=== PATIENT | male | born 1945 | race African-American/Black ===

== ENCOUNTER 2018-04-10 19:16 | Emergency (ER) | payer MEDICARE, BC ==
[2018-04-10 19:36] VITALS: RESP 18
--- NOTE | 2018-04-10 20:41 | ED ---
Back Pain HPI - General Chief Complaint: Back Pain/Injury Stated Complaint: Neck pain Time Seen by Provider: 04/10/18 20:27 Source: patient, RN notes reviewed Limitations: no limitations - History of Present Illness Initial Comments: This is a 72-year-old male who presents to the emergency department with chief complaint of acute neck pain. Patient states that yesterday he had an echocardiogram. He states that while he was laying there he started to feel a kink in the left side of his neck. He states that he had to take a break from the echo because his neck was hurting him so bad. Patient states that since that time he has had difficulty rotating his neck to the left. He states that he's had difficulty sleeping due to pain. He states that he has been taking Tylenol and did take a dose of his 's baclofen but that this did not help. He denies any numbness or tingling. Denies weakness. Denies fevers or chills, chest pain or shortness of breath, abdominal pain, nausea or vomiting, dizziness or headache. - Related Data Home Medications Medication Instructions Recorded Confirmed Aspirin 81 mg PO DAILY 03/19/14 03/19/14 Gabapentin [Neurontin] 300 mg PO TID 03/19/14 03/19/14 Carvedilol [Coreg] 6.25 mg PO BID 04/10/18 04/10/18 Cholecalciferol (Vitamin D3) 2,000 unit PO DAILY 04/10/18 04/10/18 [Vitamin D3] Loratadine [Claritin] 10 mg PO DAILY 04/10/18 04/10/18 Losartan Potassium [Cozaar] 100 mg PO DAILY 04/10/18 04/10/18 metFORMIN HCL 1,000 mg PO HS 04/10/18 04/10/18 Previous Rx's Medication Instructions Recorded Methocarbamol [Robaxin] 1,000 mg PO QID PRN #12 tab 04/10/18 Allergies Allergy/AdvReac Type Severity Reaction Status Date / Time No Known Allergies Allergy Verified 04/10/18 20:33 Review of Systems ROS Statement: Those systems with pertinent positive or pertinent negative responses have been documented in the HPI. ROS Other: All systems not noted in ROS Statement are negative. Past Medical History Past Medical History: Diabetes Mellitus, Hypertension Additional Past Medical History / Comment(s): neuropathy History of Any Multi-Drug Resistant Organisms: None Reported Past Surgical History: Orthopedic Surgery Additional Past Surgical History / Comment(s): knee bilateral Past Psychological History: No Psychological Hx Reported Smoking Status: Former smoker Past Alcohol Use History: None Reported Past Drug Use History: None Reported General Exam - General Exam Comments Initial Comments: General: Awake and alert, well-developed; in no apparent distress. is at bedside. HEENT: Head atraumatic, normocephalic. Pupils are equal, round and reactive to light. Extraocular movements intact. Oropharynx moist without erythema or exudate. Neck: Supple. Limited range of motion with rotation to the left due to pain. Patient is tender along the sternocleidomastoid and left cervical musculature. No bony point tenderness. Cardiovascular: Regular rate and rhythm. No murmurs, rubs or gallops. Chest symmetrical. Respiratory: Lungs clear to auscultation bilaterally. No wheezes, rales or rhonchi. Normal respiratory effort with no use of accessory muscles. Musculoskeletal: Normal ROM, no tenderness, strength 5/5 bilateral upper and lower extremities. Ambulating normally. Skin: [place], warm and dry without rashes or lesions. Neurological: Alert and oriented x3. CN II-XII grossly intact. Speech is fluent and answers are appropriate. No focal neuro deficits. Psychiatric: Normal mood and affect. No overt signs of depression or anxiety noted. Limitations: no limitations Course Vital Signs 04/10/18 19:31 Temperature 99.3 F Pulse Rate 80 Respiratory 18 Rate Blood Pressure 197/85 O2 Sat by Pulse 98 Oximetry Medical Decision Making - Medical Decision Making This is a 72-year-old male who presents to the emergency department with chief complaint of neck pain. Patient states that he felt a kink in his left side of his neck while laying without a pillow during an echocardiogram yesterday. He has difficulty rotating his neck to the left due to pain. He denies any specific injury or trauma. Denies recent falls. Tenderness along the sternocleidomastoid and left-sided cervical musculature. No bony point tenderness. No weakness or numbness and tingling. Patient given a dose of Robaxin and lidocaine patch while in the emergency department. He will be discharged home with a prescription for Robaxin. Patient is in agreement and voices understanding. All questions answered. Disposition Clinical Impression: Cervical strain Disposition: HOME SELF-CARE Condition: Good Instructions: Acute Neck Pain (ED), Cervical Strain (ED) Additional Instructions: Please take medications as prescribed. Please follow up with primary care provider within 1-2 days. Return to emergency department if symptoms should worsen or any concerns arise. Prescriptions: Methocarbamol [Robaxin] 1,000 mg PO QID PRN #12 tab PRN Reason: Muscle Pain Is patient prescribed a controlled substance at d/c from ED?: No Referrals: Willie Martinez MD [Primary Care Provider] - 1-2 days Time of Disposition: 21:29
[2018-04-10] MEDS ORDERED: LIDOCAINE 5% PATCH TOPICAL STA (20:57)
[2018-04-10] MEDS ORDERED: METHOCARBAMOL 500 MG TAB PO STA (20:57)
[2018-04-10 21:48] VITALS: BP 207/90; PULSE 70; TEMP 97.4
== END 2018-04-10 21:48 | disposition home or self-care (01) ==
LOC: EC 19:16
DX: S16.1XXA Strain of muscle, fascia and tendon at neck level, initial encounter (principal); E11.40 Type 2 diabetes mellitus with diabetic neuropathy, unspecified; I10 Essential (primary) hypertension; Z87.891 Personal history of nicotine dependence; Z79.84 Long term (current) use of oral hypoglycemic drugs; Z79.82 Long term (current) use of aspirin; Z79.899 Other long term (current) drug therapy
CPT/HCPCS: 99283

== ENCOUNTER → 2018-04-27 | Outpatient (CLI) | payer MEDICARE, BC ==
[2018-04-27 09:12] LABS: Anisocytosis Slight; HCT 39.9 % (39.0-53.0); HGB 12.5 gm/dL (13.0-17.5); Hypochromasia Moderate; MCH 27.1 pg (25.0-35.0); MCHC 31.3 g/dL (31.0-37.0); MCV 86.7 fL (80.0-100.0); Mean Platelet Volume 6.8; Platelet Count 253 k/uL (150-450); RDW 16.4 % (11.5-15.5)
[2018-04-27 09:38] LABS: Potassium 4.8 mmol/L (3.5-5.1)
== END | disposition home or self-care (01) ==
LOC: LABPAT 08:36
PROVIDERS: ATTEND Internal Medicine Interventional Cardiology
DX: Z01.812 Encounter for preprocedural laboratory examination (principal); R94.39 Abnormal result of other cardiovascular function study
CPT/HCPCS: 36415; 80051; 82565; 84520; 85027

== ENCOUNTER → 2018-05-01 | Day surgery (SDC) | payer MEDICARE, BC ==
[2018-04-27 15:36] VITALS: BMI 47.7
[~2018-05-01] MED LIST: ALPRAZolam 0.5 MG TAB PO PRN; ASPIRIN 325 MG TAB PO ONE; ASPIRIN 81 MG PO SCH; CARVEDILOL 6.25 MG TAB PO SCH; GABAPENTIN 300 MG CAP PO SCH; HEPARIN SODIUM 1,000 UN/ML (10ML VL) ONE; IOPAMIDOL-370 125ML BTL INJ ONE; LIDOCAINE 2% SYG (PF) 100 MG/5 ML MISCELLANE ONE; LORATADINE 10 MG TAB PO PRN; MIDAZOLAM 2 MG/2 ML VIAL IV ONE; MIDAZOLAM 2 MG/2 ML VIAL ONE; NON-FORMULARY DRUG (Cholecalciferol (Vitamin D3) [Vitamin D3] 2,000 UNIT) PO SCH; NON-FORMULARY DRUG (Losartan Potassium [Cozaar] 100 MG) PO SCH; RX INFO: IV CONTRAST WAS GIVEN 1 EACH MISC MISCELLANE PRN; SODIUM CHLORIDE 0.9% 1,000 ML IV SCH; SODIUM CHLORIDE 0.9% 1,000 ML in EMPTY BAG 1 BAG IV ONE; VERAPAMIL 2.5 MG/ML 2 ML AMP ONE; diphenhydrAMINE 50 MG/ML 1 ML VIAL IVP ONE; diphenhydrAMINE 50 MG/ML 1 ML VIAL ONE; fentaNYL (PF) 50 MCG/ML 2 ML AMP IV ONE; fentaNYL (PF) 50 MCG/ML 2 ML AMP ONE
[2018-05-01 06:33] VITALS: RESP 18
[2018-05-01 06:54] LABS: Glucose,Whole Blood 140 mg/dL (75-99)
[2018-05-01] MEDS: VERAPAMIL SYRINGE (5 MG/10 ML) INTRAARTER ONE ×2 (07:47→08:02)
--- NOTE | 2018-05-01 10:04 | CC ---
CARDIAC CATHETERIZATION REPORT Mr. Lopez is a 72-year-old male with known history of diabetes and hypertension who was found to have episode of non-sustained ventricular tachycardia. He has occasional palpitation and his test showed partial reversible inferior wall defect. In view of that and in view of his risk factors, recommendation made regarding cardiac catheterization. The procedures, risks and complications were discussed with the patient who is in full understanding and agreement. PROCEDURE: Patient was brought to the cath lab technologist in a fasting semi-sedated state after receiving fentanyl and Benadryl and achieving moderate conscious sedated state. Using Xylocaine anesthesia and Seldinger technique, a 6-Nigerien sheath was introduced in the right radial artery. Selective right and left angiography was performed using 5-Nigerien 4 bend right Mario Alberto catheter and 3.5 bend left Mario Alberto catheter. Multiple views of the coronary artery including hemiaxial views obtained. Following that 5-Nigerien tight pigtail catheter introduced into the left ventricle and a 30 degree READ view of the left ventricle was obtained. Following that, the catheter and sheath were removed. Hemostasis was obtained with deployment of a TR band. There was no immediate complication. Patient was returned to his room in stable condition. Of note, the patient received 5000 units of intravenous heparin as well as intra-arterial verapamil. FINDINGS: 1. LEFT MAIN: This is a large-sized vessel, bifurcating into left circumflex, left anterior descending artery, left main coronary artery has no evidence of high-grade stenosis. 2. LEFT ANTERIOR DESCENDING ARTERY This is a large-sized vessel, reaching toward the apex with a wraparound apex segment, giving rise to 2 diagonal branches. The first one is larger and moderate in size. The left anterior descending artery had mild plaque in the mid segment of 10% to 20% without any evidence of high-grade stenosis. 3. LEFT CIRCUMFLEX: This is a large nondominant vessel, giving rise to 2 obtuse marginal branches. The left circumflex as well as branches have no evidence of obstructive coronary artery disease. 4. RIGHT CORONARY ARTERY: This is a nondominant vessel, large in caliber, bifurcating distally into PDA and posterolateral segment branches. The right coronary artery has no evidence of high-grade stenosis. 5. LEFT VENTRICULOGRAM: left ventriculogram is performed in 30 degree READ view and revealed normal left ventricular size systolic function ejection fraction 55%. There was no significant mitral regurgitation. HEMODYNAMICS: There was no gradient across the aortic valve the ventricle end-diastolic pressure was 24-28 mmHg. CONCLUSION: 1. 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 2. Normal left ventricular size and systolic function. RECOMMENDATION: In view of finding anatomy, I would recommend to continue medical therapy with aggressive risk modifications being initiated. Those findings and recommendation were discussed with the patient his family and they are in full understanding and agreement. Duration of the procedure is 30 minutes. OMER / SUMMERN: [id number] /
--- NOTE | 2018-05-01 10:10 | LTR ---
DATE OF SERVICE: 05/01/2018 RE: Fred Lopez Dear Dr. Martinez: I had the pleasure to perform cardiac catheterization on Mr. Lopez at [facility] on May 01, 2018 and a full copy of the procedure note will be forwarded to you. In brief, he was found to have mild intimal disease involving the left anterior descending artery with a preserved left ventricular size and systolic function and based on those findings, I have recommended to continue medical therapy with aggressive risk factor modification being initiated. Thank you again for allowing me to participate in this patient's care. Please feel free to call for any questions. Sincerely yours, MD OSVALDO MinerL / SUMMERN: [id number] /
[2018-05-01 13:26] VITALS: BP 137/67; PULSE 58; TEMP 98.2
== END | disposition home or self-care (01) ==
LOC: CATHCVL 05:56
PROVIDERS: ATTEND Internal Medicine Interventional Cardiology
DX: I25.10 Atherosclerotic heart disease of native coronary artery without angina pectoris (principal); I47.2 Ventricular tachycardia; I10 Essential (primary) hypertension; Z82.49 Family history of ischemic heart disease and other diseases of the circulatory system; E11.9 Type 2 diabetes mellitus without complications; Z79.82 Long term (current) use of aspirin; Z79.899 Other long term (current) drug therapy; Z79.84 Long term (current) use of oral hypoglycemic drugs
CPT/HCPCS: 93458; C1894; C1769; J2250; J1200; J2001; J3010; Q9967

== ENCOUNTER → 2018-11-26 | Outpatient (CLI) | payer MEDICARE, BC ==
--- NOTE | 2018-11-26 16:01 | US ---
EXAMINATION TYPE: US kidneys/renal and bladder DATE OF EXAM: 11/26/2018 COMPARISON: NONE CLINICAL HISTORY: R31.9 Hematuria. Hematuria. EXAM MEASUREMENTS: Right Kidney: 9.9 x 4.9 x 4.4 cm Left Kidney: 10.7 x 5.3 x 5.9 cm Right Kidney: No hydronephrosis or masses seen Left Kidney: No hydronephrosis or masses seen Bladder: wnl Bilateral Jets seen: No There is no evidence for hydronephrosis at this point in time. No nephrolithiasis is seen. No deejay s are identified. The urinary bladder is somewhat poorly distended and thus suboptimally evaluated. IMPRESSION: No suspicious finding is seen to account for patient's symptoms. If symptoms persists further investi gation with CT urogram would be warranted.
== END | disposition home or self-care (01) ==
LOC: RADUSWWP 15:26
PROVIDERS: ATTEND Internal Medicine
DX: R31.9 Hematuria, unspecified (principal)
CPT/HCPCS: 76770

== ENCOUNTER → 2021-03-13 | Outpatient (CLI) | payer MEDICARE, BC ==
--- NOTE | 2021-03-13 10:19 | US ---
EXAMINATION TYPE: US abdomen limited DATE OF EXAM: 03/13/2021 COMPARISON: Ultrasound abdomen 2015 CLINICAL HISTORY: R10.84 Generalized abd pain. epigastric pain EXAM MEASUREMENTS: Liver Length: 14.3 cm Gallbladder Wall: 0.3 cm CBD: 0.4 cm Right Kidney: 10.4 x 4.5 x 5.3 cm Technical limitations due to patient's body habitus and overlying bowel content Pancreas: Obscured by bowel gas Liver: cystic area = 1.3 x 1.4 x 1.8cm Gallbladder: non-mobile echogenic area = 0.5cm anterior wall Evidence for sonographic Becerra's sign: no CBD: limited evaluation Right Kidney: no evidence of hydronephrosis Suboptimal evaluation of pancreas on initial images due to shadowing from overlying bowel gas. Visual ized liver is slightly heterogeneous in appearance with slightly larger 1.8 cm thin-walled cyst deep aspect with possible thin septa. Gallbladder shows ringdown artifact from focus near gallbladder wall suspected cholesterolosis. No right-sided hydronephrosis. IMPRESSION: Suboptimal study, no acute findings evident.
== END | disposition home or self-care (01) ==
LOC: RADUSWWP 07:01
PROVIDERS: ATTEND Internal Medicine
DX: R10.13 Epigastric pain (principal)
CPT/HCPCS: 76705

== ENCOUNTER 2023-02-07 19:14 | Emergency (ER) | payer BC, MEDICARE ==
[2023-02-07 19:20] VITALS: PULSE 78; RESP 18; TEMP 97.9
[2023-02-07] MEDS ORDERED: HYDROcodone/APAP 7.5-325MG 1 EACH TAB PO ONE (19:48)
--- NOTE | 2023-02-07 20:29 | XR ---
EXAMINATION TYPE: XR chest 2V DATE OF EXAM: 02/07/2023 COMPARISON: NONE HISTORY: Pain TECHNIQUE: 2 view FINDINGS: Heart is normal. Lungs are clear. Diaphragm is normal. Bony thorax is normal. IMPRESSION: Normal chest
--- NOTE | 2023-02-07 20:31 | XR ---
EXAMINATION TYPE: XR thoracic spine complete DATE OF EXAM: 02/07/2023 COMPARISON: Chest x-ray 12/24/2011 HISTORY: Pain TECHNIQUE: 2 views FINDINGS: The thoracic vertebra have normal alignment. Posterior elements are intact. No paraspinal m ass. There is degenerative spurring anteriorly in the lower thoracic spine. No compression fracture. IMPRESSION: Degenerative hypertrophic mild changes. No fracture.
[2023-02-07 20:32] VITALS: BP 164/85
[2023-02-07 21:09] LABS: Appearance,Urine Clear (Clear); Bilirubin,Urine Negative (Negative); Blood,Urine Negative (Negative); Color,Urine Light Yellow; Glucose,Urine (UA) Negative (Negative); Ketones,Urine Negative (Negative); Leukocyte Esterase,Urine Negative (Negative); Nitrite,Urine Negative (Negative); PH, Urine 6.5 (5.0-8.0); Protein,Urine Negative (Negative); Specific Gravity,Urine 1.012 (1.001-1.035); Urobilinogen,Urine <2.0 mg/dL (<2.0)
--- NOTE | 2023-02-07 21:25 | ED ---
General Adult HPI - General Chief complaint: Abdominal Pain Stated complaint: rt sided abd pain Time Seen by Provider: 02/07/23 19:23 Source: patient Mode of arrival: ambulatory Limitations: no limitations - History of Present Illness Initial comments: Patient is a 77-year-old male presenting with chief complaint of bilateral side pain. Patient states that he is getting sharp pain at the base of his shoulder blades and on the lateral portion of the ribs that has been ongoing for a few days. States that pain is made worse with range of motion. Patient does state that he has been doing increased work around the house recently which may have caused the pain. No chest pain, difficulty breathing, palpitations, weakness, numbness, tingling, fevers, chills, cough, congestion, sore throat, abdominal pain, nausea, vomiting, dysuria, hematuria. - Related Data Home Medications Medication Instructions Recorded Confirmed Aspirin 81 mg PO DAILY 03/19/14 05/01/18 Gabapentin [Neurontin] 300 mg PO BID 03/19/14 05/01/18 Cholecalciferol (Vitamin D3) 2,000 unit PO DAILY 04/10/18 05/01/18 [Vitamin D3] Loratadine [Claritin] 10 mg PO DAILY PRN 04/10/18 05/01/18 Losartan Potassium [Cozaar] 100 mg PO DAILY 04/10/18 05/01/18 carvediloL [Coreg] 6.25 mg PO BID 04/10/18 05/01/18 metFORMIN HCL [Glucophage] 1,000 mg PO PC-SUPPER 04/10/18 05/01/18 Allergies Allergy/AdvReac Type Severity Reaction Status Date / Time No Known Allergies Allergy Verified 02/07/23 19:20 Review of Systems ROS Statement: Those systems with pertinent positive or pertinent negative responses have been documented in the HPI. ROS Other: All systems not noted in ROS Statement are negative. Past Medical History Past Medical History: Diabetes Mellitus, Hypertension Additional Past Medical History / Comment(s): neuropathy History of Any Multi-Drug Resistant Organisms: None Reported Past Surgical History: Orthopedic Surgery Additional Past Surgical History / Comment(s): knee bilateral Past Psychological History: No Psychological Hx Reported Smoking Status: Never smoker Past Alcohol Use History: None Reported Past Drug Use History: None Reported General Exam Limitations: no limitations General appearance: alert, in no apparent distress Head exam: Present: atraumatic, normocephalic, normal inspection Eye exam: Present: normal appearance Neck exam: Present: normal inspection, full ROM Respiratory exam: Present: normal lung sounds bilaterally, chest wall tenderness. Absent: respiratory distress, wheezes, rales, rhonchi, stridor Cardiovascular Exam: Present: regular rate, normal rhythm, normal heart sounds. Absent: systolic murmur, diastolic murmur, rubs, gallop, clicks GI/Abdominal exam: Present: soft. Absent: distended, tenderness, guarding, rebound, rigid Back exam: Absent: CVA tenderness (R), CVA tenderness (L) Neurological exam: Present: alert, oriented X3, CN II-XII intact Psychiatric exam: Present: normal affect, normal mood Skin exam: Present: warm, dry, intact, normal color. Absent: rash Course Vital Signs 02/07/23 02/07/23 19:16 20:32 Temperature 97.9 F Pulse Rate 78 Respiratory 18 Rate Blood Pressure 191/112 164/85 O2 Sat by Pulse 99 Oximetry Medical Decision Making - Medical Decision Making Was pt. sent in by a medical professional or institution (, PA, RESPIRATORY THERAPY DIRECTOR, urgent care, hospital, or retirement...) When possible be specific @ -No Did you speak to anyone other than the patient for history (EMS, parent, family, police, friend...)? What history was obtained from this source @ - Did you review nursing and triage notes (agree or disagree)? Why? @ -I reviewed and agree with nursing and triage notes Were old charts reviewed (outside hosp., previous admission, EMS record, old EKG, old radiological studies, urgent care reports/EKG's, retirement records)? Report findings @ -No old charts were reviewed Differential Diagnosis (chest pain, altered mental status, abdominal pain women, abdominal pain men, vaginal bleeding, weakness, fever, dyspnea, syncope, headache, dizziness, GI bleed, back pain, seizure, CVA, palpatations, mental health, musculoskeletal)? @ -Differential includes musculoskeletal strain, kidney stone, pyelonephritis, pneumonia, pneumothorax, this is not an all inclusive list EKG interpreted by me (3pts min.). @ -As above X-rays interpreted by me (1pt min.). @ -X-ray of the chest and thoracic spine shows no acute process CT interpreted by me (1pt min.). @ -None done U/S interpreted by me (1pt. min.). @ -None done What testing was considered but not performed or refused? (CT, X-rays, U/S, labs)? Why? @ -None What meds were considered but not given or refused? Why? @ -None Did you discuss the management of the patient with other professionals (professionals i.e. DrLukas, PA, RESPIRATORY THERAPY DIRECTOR, lab, RT, psych nurse, social insurance analyst, manager proposal, teacher, chief customer officer, counseling case manager)? Give summary @ -No Was smoking cessation discussed for >3mins.? @ -No Was critical care preformed (if so, how long)? @ -No Were there social determinants of health that impacted care today? How? (Homelessness, low income, unemployed, alcoholism, drug addiction, transportation, low edu. Level, literacy, decrease access to med. care, group home, rehab)? @ -No Was there de-escalation of care discussed even if they declined (Discuss DNR or withdrawal of care, Hospice)? DNR status @ -No What co-morbidities impacted this encounter? (DM, HTN, Smoking, COPD, CAD, Cancer, CVA, ARF, Chemo, Hep., AIDS, mental health diagnosis, sleep apnea, morbid obesity)? @ -None Was patient admitted / discharged? Hospital course, mention meds given and route, prescriptions, significant lab abnormalities, going to OR and other pertinent info. @ -Patient is a 77-year-old male presented with chief complaint of bilateral side pain has been ongoing for a few days. Worse with range of motion. On examination pain is reproducible on palpation of the lateral ribs. Heart and lungs are clear to auscultation. Patient is having no chest pain, difficulty breathing, palpitations, weakness. Urine shows no infectious process or signs of bleeding. X-ray of the thoracic spine and chest shows no acute process. Patient is educated on these findings, symptoms are likely due to musculoskeletal pain. Educated on supportive treatment at home with Motrin and Tylenol. Follow-up with PCP. Report back to ER with any new or worsening symptoms. Discussed return parameters and answered all questions. Patient conveyed verbal understanding and agreed to the plan. I discussed this case in detail with my attending Dr. Sahu Undiagnosed new problem with uncertain prognosis? @ -No Drug Therapy requiring intensive monitoring for toxicity (Heparin, Nitro, Insulin, Cardizem)? @ -No Were any procedures done? @ -No Diagnosis/symptom? @ -Muscle strain Acute, or Chronic, or Acute on Chronic? @ -Acute Uncomplicated (without systemic symptoms) or Complicated (systemic symptoms)? @ -Complicated Side effects of treatment? @ -No Exacerbation, Progression, or Severe Exacerbation? @ -No Poses a threat to life or bodily function? How? (Chest pain, [place], MD, pneumonia, PE, COPD, DKA, ARF, appy, cholecystitis, CVA, Diverticulitis, Homicidal, Suicidal, threat to staff... and all critical care pts) @ -No - Lab Data Lab Results 02/07/23 Range/Units 20:32 Urine Color Light Yellow Urine Appearance Clear (Clear) Urine pH 6.5 (5.0-8.0) Ur Specific [place] 1.012 (1.001-1.035) Urine Protein Negative (Negative) Urine Glucose (UA) Negative (Negative) Urine Ketones Negative (Negative) Urine Blood Negative (Negative) Urine Nitrite Negative (Negative) Urine Bilirubin Negative (Negative) Urine Urobilinogen <2.0 (<2.0) mg/dL Ur Leukocyte Esterase Negative (Negative) Disposition Clinical Impression: Musculoskeletal pain Disposition: HOME SELF-CARE Condition: Good Instructions (If sedation given, give patient instructions): Pain Management (ED), Musculoskeletal Pain (ED) Additional Instructions: Follow-up with PCP. Report back to ER with any new or worsening symptoms. Take Motrin and Tylenol as needed for pain control. Is patient prescribed a controlled substance at d/c from ED?: No Referrals: Willie Martinez MD [Primary Care Provider] - 1-2 days Time of Disposition: 21:25
== END 2023-02-07 21:38 | disposition home or self-care (01) ==
LOC: EC 19:14
DX: M79.18 Myalgia, other site (principal); E11.9 Type 2 diabetes mellitus without complications; I10 Essential (primary) hypertension; Z79.82 Long term (current) use of aspirin; Z79.84 Long term (current) use of oral hypoglycemic drugs; Z79.899 Other long term (current) drug therapy
CPT/HCPCS: 71046; 72072; 81003; 99284

== ENCOUNTER 2025-04-08 07:48 | Emergency (ER) | payer MEDICARE ==
[2025-04-08 07:54] VITALS: BP 185/78; PULSE 89; RESP 20; TEMP 98.1
--- NOTE | 2025-04-08 08:21 | ED ---
General Adult HPI - General Chief complaint: Abdominal Pain Stated complaint: ABD/ Back Pain Time Seen by Provider: 04/08/25 07:54 Source: patient, RN notes reviewed, old records reviewed Mode of arrival: ambulatory Limitations: no limitations - History of Present Illness Initial comments: 79-year-old male presenting for evaluation of right lower quad abdominal pain and flank pain. Pain has been intermittent over the past 16 to 24 hours. Pain is sharp and severe in nature but only last several seconds. Patient denies urinary symptoms, no dysuria or hematuria. No vomiting. No fever. Normal bowels. - Related Data Home Medications Medication Instructions Recorded Confirmed Aspirin 81 mg PO DAILY 03/19/14 05/01/18 Gabapentin [Neurontin] 300 mg PO BID 03/19/14 05/01/18 Cholecalciferol (Vitamin D3) 2,000 unit PO DAILY 04/10/18 05/01/18 [Vitamin D3] Loratadine [Claritin] 10 mg PO DAILY PRN 04/10/18 05/01/18 Losartan Potassium [Cozaar] 100 mg PO DAILY 04/10/18 05/01/18 carvediloL [Coreg] 6.25 mg PO BID 04/10/18 05/01/18 metFORMIN HCL [Glucophage] 1,000 mg PO PC-SUPPER 04/10/18 05/01/18 Allergies Allergy/AdvReac Type Severity Reaction Status Date / Time No Known Allergies Allergy Verified 04/08/25 07:54 Review of Systems ROS Statement: Those systems with pertinent positive or pertinent negative responses have been documented in the HPI. ROS Other: All systems not noted in ROS Statement are negative. Past Medical History Past Medical History: Cancer, Diabetes Mellitus, Hypertension Additional Past Medical History / Comment(s): neuropathy, Prostate CA History of Any Multi-Drug Resistant Organisms: None Reported Past Surgical History: Orthopedic Surgery, Prostate Surgery Additional Past Surgical History / Comment(s): knee bilateral Past Psychological History: No Psychological Hx Reported Smoking Status: Never smoker Past Alcohol Use History: None Reported Past Drug Use History: None Reported General Exam Limitations: no limitations General appearance: alert, in no apparent distress Head exam: Present: atraumatic, normocephalic Eye exam: Present: normal appearance, PERRL ENT exam: Present: normal exam Neck exam: Present: normal inspection. Absent: tenderness, meningismus Respiratory exam: Present: normal lung sounds bilaterally. Absent: respiratory distress, wheezes Cardiovascular Exam: Present: regular rate, normal rhythm GI/Abdominal exam: Present: soft. Absent: distended, tenderness, guarding, rebound Extremities exam: Present: normal inspection, normal capillary refill Back exam: Present: full ROM. Absent: tenderness, CVA tenderness (R), CVA tenderness (L) Neurological exam: Present: alert, oriented X3, CN II-XII intact. Absent: motor sensory deficit Psychiatric exam: Present: normal affect, normal mood Skin exam: Present: warm, dry, intact. Absent: cyanosis, diaphoretic Course Vital Signs 04/08/25 07:51 Temperature 98.1 F Pulse Rate 89 Respiratory 20 Rate Blood Pressure 185/78 O2 Sat by Pulse 98 Oximetry Medical Decision Making - Medical Decision Making Was pt. sent in by a medical professional or institution (, PA, SPECIAL TESTER, urgent care, hospital, or assisted...) When possible be specific @ -No Did you speak to anyone other than the patient for history (EMS, parent, family, police, friend...)? What history was obtained from this source @ -No Did you review nursing and triage notes (agree or disagree)? Why? @ -I reviewed and agree with nursing and triage notes Were old charts reviewed (outside hosp., previous admission, EMS record, old EKG, old radiological studies, urgent care reports/EKG's, assisted records)? Report findings @ -No old charts were reviewed Differential Abdominal Pain Men: Appendicitis, cholecystitis, diverticulosis, ischemic bowel, pancreatitis, hepatitis, UTI, gastroenteritis, AAA, incarcerated hernia, bowel obstruction, constipation, inflammatory bowel, hepatitis, peptic ulcer disease, splenic infarction, perforated viscus, testicular torsion, this is not meant to be an all-inclusive list EKG interpreted by me (3pts min.). @ -As above X-rays interpreted by me (1pt min.). @ -None done CT interpreted by me (1pt min.). @ -[CT shows chronic findings with a small stone in the distal right ureter with no associated hydronephrosis or hydroureter U/S interpreted by me (1pt. min.). @ -None done What testing was considered but not performed or refused? (CT, X-rays, U/S, labs)? Why? @ -None What meds were considered but not given or refused? Why? @ -None Did you discuss the management of the patient with other professionals (professionals i.e. , PA, SPECIAL TESTER, lab, RT, psych nurse, social research assistant, hvac manager, teacher, signals officer, behavioral health case manager)? Give summary @ -No Was smoking cessation discussed for >3mins.? @ -No Was critical care preformed (if so, how long)? @ -No Were there social determinants of health that impacted care today? How? (Homelessness, low income, unemployed, alcoholism, drug addiction, transportation, low edu. Level, literacy, decrease access to med. care, snf, rehab)? @ -No Was there de-escalation of care discussed even if they declined (Discuss DNR or withdrawal of care, Hospice)? DNR status @ -No What co-morbidities impacted this encounter? (DM, HTN, Smoking, COPD, CAD, Cancer, CVA, ARF, Chemo, Hep., AIDS, mental health diagnosis, sleep apnea, morbid obesity)? @ -None Was patient admitted / discharged? Hospital course, mention meds given and route, prescriptions, significant lab abnormalities, going to OR and other p ertinent info. @ -[79-year-old male presenting with flank and lower abdominal pain on the right. Pain is intermittent, sharp in nature. No pain at the time my evaluation. No vomiting. No fever. No dysuria. Urinalysis is unremarkable. CT shows a likely punctate stone in the distal right ureter. This does explain the patient's pain. No further pain while in the emergency department. Patient stable for discharge with return parameters. Undiagnosed new problem with uncertain prognosis? @ -No Drug Therapy requiring intensive monitoring for toxicity (Heparin, Nitro, Insulin, Cardizem)? @ -No Were any procedures done? @ -No Diagnosis/symptom? @ -Abdominal pain, kidney stone Acute, or Chronic, or Acute on Chronic? @ -Acute Uncomplicated (without systemic symptoms) or Complicated (systemic symptoms)? @ -Default Side effects of treatment? @ -No Exacerbation, Progression, or Severe Exacerbation? @ -No Poses a threat to life or bodily function? How? (Chest pain, [place], [place], pneumonia, PE, COPD, DKA, ARF, appy, cholecystitis, CVA, Diverticulitis, Homicidal, Suicidal, threat to staff... and all critical care pts) @ -No - Lab Data Lab Results 04/08/25 Range/Units 08:05 Urine Color Light Yellow Urine Appearance Clear (Clear) Urine pH 5.5 (5.0-8.0) Ur Specific [place] 1.015 (1.001-1.035) Urine Protein Negative (Negative) Urine Glucose (UA) Negative (Negative) Urine Ketones Negative (Negative) Urine Blood Negative (Negative) Urine Nitrite Negative (Negative) Urine Bilirubin Negative (Negative) Urine Urobilinogen <2.0 (<2.0) mg/dL Ur Leukocyte Esterase Negative (Negative) Disposition Clinical Impression: Calculus of kidney Disposition: HOME SELF-CARE Condition: Good Instructions (If sedation given, give patient instructions): Kidney Stones (ED), Acute Abdominal Pain (ED) Is patient prescribed a controlled substance at d/c from ED?: No Referrals: Willie Martinez MD [Primary Care Provider] - 1-2 days Time of Disposition: 09:11
--- NOTE | 2025-04-08 08:40 | CT ---
EXAMINATION TYPE: CT abdomen pelvis wo con DATE OF EXAM: 04/08/2025 8:21 AM COMPARISON: None. CLINICAL INDICATION: Male, 79 years old with history of Right flank and right lower quadrant pain; Ri ght flank and right lower quadrant pain. TECHNIQUE: CT of the abdomen and pelvis without IV contrast. Sagittal and coronal reformats were crea dontae on a separate workstation. CT DLP: 1935.4 mGycm, Automated exposure control for dose reduction was used. FINDINGS: LOWER CHEST: Heart upper limits are normal in size. Scattered coronary calcifications are present. ABDOMEN LIVER: Unremarkable GALLBLADDER AND BILE DUCTS: Unremarkable. PANCREAS: Unremarkable. SPLEEN: Unremarkable. ADRENAL GLANDS: Unremarkable. KIDNEYS AND URETERS: Suspect a small 1.1 cm exophytic cyst anterior right kidney. No nephrolithiasis or hydronephrosis is seen. Several punctate 1 mm density at the right UVJ region, axial image 122. PELVIS BLADDER: Mild circumferential bladder wall thickening. REPRODUCTIVE: Brachytherapy seeds in the prostate gland. ABDOMEN & PELVIS STOMACH AND BOWEL: No evidence of bowel obstruction. Markedly redundant transverse and sigmoid colon. Mild scattered colonic diverticulosis. Mild overall stool burden. No pericolonic inflammatory change . PERITONEUM/RETROPERITONEUM: No evidence of pneumoperitoneum or free fluid. VASCULATURE: Mild aneurysm lower descending thoracic aorta up to 3.1 cm and at the thoracoabdominal J unction of 3.0 cm. Scattered mild atherosclerotic calcifications. MUSCULOSKELETAL: Hypertrophic facet arthropathy lumbar spine. Degenerative grade 1 retrolisthesis L2- L3. DISH lower thoracic spine. Possible multilevel moderate or severe spinal canal stenoses in the dawn mbar spine. LYMPH NODES: No gross evidence for lymphadenopathy. SOFT TISSUE/ABDOMINAL WALL: Small fatty umbilical hernia. IMPRESSION: 1. A punctate 1 mm density projecting near the right UVJ region. Suspect a tiny distal ureteral ston e or stone just passed into the bladder. No significant obstructive uropathy. 2. Mild circumferential bladder wall thickening may be chronic from the patient. Correlate to exclude cystitis. 3. Scattered mild colonic diverticulosis without acute diverticulitis. 4. 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 5. Prominent spondylitic change within the visualized lumbar spine. Variable moderate and severe spin al canal stenoses are suspected. [facility], , 04/08/2025 8:38 AM
[2025-04-08 08:49] LABS: Appearance,Urine Clear (Clear); Bilirubin,Urine Negative (Negative); Blood,Urine Negative (Negative); Color,Urine Light Yellow; Glucose,Urine (UA) Negative (Negative); Ketones,Urine Negative (Negative); Leukocyte Esterase,Urine Negative (Negative); Nitrite,Urine Negative (Negative); PH, Urine 5.5 (5.0-8.0); Protein,Urine Negative (Negative); Specific Gravity,Urine 1.015 (1.001-1.035); Urobilinogen,Urine <2.0 mg/dL (<2.0)
== END 2025-04-08 09:25 | disposition home or self-care (01) ==
LOC: EC 07:48
DX: N20.0 Calculus of kidney (principal)
CPT/HCPCS: 74176; 81003; 99284